=== PATIENT | female | born 1950 | race Caucasian/White ===

== ENCOUNTER 2023-06-24 10:27 | Outpatient (CLI) | payer MEDICARE, OTHER, SELFPAY ==
--- NOTE | 2023-06-24 10:07 | DI.RAD_ITS ---
Exam(s) XR STANDING ALIGNMENT EXAM: XR STANDING ALIGNMENT CLINICAL HISTORY: R TKA. TECHNIQUE: 2D digital imaging was performed. COMPARISON: No exams were available for comparison FINDINGS: 3 views There is a left knee prosthesis. There is moderate severe narrowing of the lateral compartment of th e right knee with element of valgus deformity. Medial compartment of the right knee exhibits normal height. Both hips appear unremarkable as do the ankles. No osseous lesions. Bone density normal. IMPRESSION: Significant narrowing of the lateral compartment of the right knee with valgus deformity. Left knee prosthesis. DATA REPOSITORY: RADIATION DOSE DELIVERED:
--- NOTE | 2023-06-24 10:08 | DI.RAD_ITS ---
Exam(s) XR KNEE RT 2V AP,LAT EXAM: XR KNEE RT 2V AP,LAT CLINICAL HISTORY: R TKA. TECHNIQUE: 2D digital imaging was performed. COMPARISON: CR XR STANDING ALIGNMENT from 06/24/2023 FINDINGS: Two views. No evidence of fracture nor joint effusion. However, there are significant degenerative changes, mor e so in the lateral than medial compartments. There is moderate-advanced narrowing of the lateral co mpartment again noted and marginal osteophytes off the lateral compartment. Also advanced degenerati ve changes in the patellofemoral compartment noted. Lesser degenerative changes with relative preser vation of height of the medial compartment. Sesamoid bones are noted in the distal half of the long lar ligament. IMPRESSION: Degenerative changes as described above, most evident in the lateral and patellofemoral compartments. DATA REPOSITORY: RADIATION DOSE DELIVERED:
== END 2023-06-24 10:28 | disposition home or self-care (01) ==
LOC: DIORS 10:27
PROVIDERS: PCP Physician Assistant; Referring Provider Physician Assistant; Visit Provider Student in an Organized Health Care Education/Training Program
DX: M17.11 Unilateral primary osteoarthritis, right knee; Z96.652 Presence of left artificial knee joint
CPT/HCPCS: 99203; 73560; 77073

== ENCOUNTER 2023-12-26 04:43 | Outpatient (CLI) | payer MEDICARE, OTHER, SELFPAY ==
[2023-12-26 15:15] LABS: HCT 42.9 % (36.0-46.0); HGB 14.3 g/dL (11.2-15.7); MCH 32.1 pg (27.0-33.0); MCHC 33.3 % (32.0-36.0); MCV 96 fL (80-95); MPV 9.1 fL (8.0-11.0); Platelet Count 320 10^3/uL (130-400); RBC 4.46 10^6/uL (3.93-5.22); RDW 13.6 % (11.7-14.6); RDW-SD 48.6 fL; WBC 8.65 10^3/uL (4.4-10.8)
[2023-12-26 16:29] LABS: Anion Gap 9.8 mmol/L (3-11); BUN 20 mg/dL (7-18); CO2 26.2 mmol/L (21.0-32.0); CREATININE 0.8 mg/dL (0.55-1.02); Calcium 9.4 mg/dL (8.5-10.1); Chloride 108 mmol/L (98-107); Estimated GFR 78.72 (mL/min/1.73m2); Glucose 108 mg/dL (74-106); Potassium 4.1 mmol/L (3.5-5.1); Sodium 144 mmol/L (136-145)
== END 2023-12-26 04:44 | disposition home or self-care (01) ==
LOC: LBO 04:44
PROVIDERS: PCP Physician Assistant; Visit Provider Student in an Organized Health Care Education/Training Program
DX: M25.561 Pain in right knee (principal); M17.11 Unilateral primary osteoarthritis, right knee; Z01.818 Encounter for other preprocedural examination; Z01.812 Encounter for preprocedural laboratory examination
CPT/HCPCS: 36415; 80048; 85027

== ENCOUNTER 2024-01-04 08:49 | Observation (INO) | payer MEDICARE, OTHER, SELFPAY ==
[2024-01-04] VITALS (9 sets, daily range): BP systolic 116–144; BP diastolic 55–69; PULSE 64–77; RESP 16–24; TEMP 36–36.6; O2SAT 95–99; BMI 34.1
[2024-01-04] MEDS: Gabapentin 300 MG CAP PO (09:14)
[2024-01-04] MEDS: Celecoxib 200 MG CAP 400 MG PO (09:14)
[2024-01-04] MEDS: Acetaminophen 500 MG TAB 1000 MG PO (09:15)
--- NOTE | 2024-01-04 09:38 | W.ANESPRE ---
General Info Date of Service Date Performed: 01/04/24 Height: 5 ft 2 in Weight: 84.6 kg Body Mass Index (BMI): 34.1 Surgical Procedure: Operation Date: 01/04/24 11:40 Proposed Procedure Side Surgeon p Knee Total Arthroplasty w/OrthAlign, Cementless CR Right Francois Nicole MD Meds Allergies and Home Medications Allergies Allergy/AdvReac Type Severity Reaction Status Date / Time mushroom Allergy Other (See Verified 01/04/24 09:11 Comment) morphine AdvReac bradycardia Verified 01/04/24 09:11 Home Medication Medication Instructions Recorded lorazepam 0.5 mg tablet 0.5 mg PO DAILY PRN 04/06/23 norethindrone acetate 1 mg-ethinyl 1 tab PO DAILY 04/06/23 estradiol 5 mcg tablet (Jinteli) pantoprazole 40 mg tablet,delayed 40 mg PO DAILY 04/06/23 release ropinirole 1 mg tablet 1 mg PO DAILY 04/06/23 sertraline 100 mg tablet 100 mg PO DAILY 04/06/23 aspirin 81 mg tablet,delayed 81 mg PO DAILY 12/26/23 release multivitamin 1 tab PO DAILY 12/26/23 Current Visit Medications: Current Medications Generic Name Dose Route Start Last Admin Trade Name Freq PRN Reason Stop Dose Admin Acetaminophen 1,000 mg 01/04/24 06:00 01/04/24 09:15 Acetaminophen 500 Mg Tab PO 01/04/24 23:59 1,000 mg PREOP ALEX Administration Celecoxib 400 mg 01/04/24 06:00 01/04/24 09:14 Celecoxib 200 Mg Cap PO 01/04/24 23:59 400 mg PREOP ALEX Administration Gabapentin 300 mg 01/04/24 06:00 01/04/24 09:14 Gabapentin 300 Mg Cap PO 01/04/24 23:59 300 mg PREOP ALEX Administration Ringer's Solution 1,000 mls @ 80 mls/hr 01/04/24 06:00 IV 01/04/24 23:59 INFUSION ALEX Cefazolin Sodium/Dextrose 2 gm in 50 mls @ 100 mls/hr 01/04/24 06:00 Ancef Duplex IVPB 01/04/24 23:59 PREOP ALEX Tranexamic Acid/Sodium Chloride 1,000 mg in 100 mls @ 600 mls/hr 01/04/24 06:00 IVPB 01/04/24 23:59 PREOP ALEX IV Miscellaneous Supplies 1 each 01/04/24 06:00 Iv Access IV 01/04/24 23:59 DIRECTED ALEX Sodium Chloride 0 ml 01/04/24 06:00 Normal Saline Flush 10 Ml Syr IV 01/04/24 23:59 PRN PRN Sodium Chloride 0 ml 01/04/24 06:00 Normal Saline 10 Ml Vial IJ 01/04/24 23:59 DIRECTED PRN Sterile Water 0 ml 01/04/24 06:00 Water,Injection,Sterile 10 Ml Vial IJ 01/04/24 23:59 DIRECTED PRN PFSH Active Problems Active Problems: Problem Status Onset Code Arthritis of right knee M17.11 Scleroderma M34.9 Raynaud's disease I73.00 Periodic limb movement disorder G47.61 Mixed anxiety and depressive disorder F41.8 Actinic keratosis L57.0 Surgical History Surgical History History of colonoscopy History of appendectomy Tobacco Smoking/Tobacco Use Status: Never Alcohol Alcohol Intake: never Substance Use Substance use: Never Substance use type: does not use Vital Signs and Lab Results Vital Signs Most Recent Vital Signs in EMR: Most Recent Vital Signs Temp Pulse Resp BP Pulse Ox 36 C L 77 16 144/69 H 99 01/04/24 08:58 01/04/24 08:58 01/04/24 08:58 01/04/24 08:58 01/04/24 08:58 Lab Results Blood Type / Crossmatch: No Data to Display Complete Blood Count: White Blood Count 8.65 10^3/uL (4.4-10.8) 12/26/23 15:10 Red Blood Count 4.46 10^6/uL (3.93-5.22) 12/26/23 15:10 Hemoglobin 14.3 g/dL (11.2-15.7) 12/26/23 15:10 Hematocrit 42.9 % (36.0-46.0) 12/26/23 15:10 Platelet Count 320 10^3/uL (130-400) 12/26/23 15:10 Complete Metabolic Panel: Sodium 144 mmol/L (136-145) 12/26/23 15:10 Potassium 4.1 mmol/L (3.5-5.1) 12/26/23 15:10 Chloride 108 mmol/L (98-107) H 12/26/23 15:10 Carbon Dioxide 26.2 mmol/L (21.0-32.0) 12/26/23 15:10 BUN 20 mg/dL (7-18) H 12/26/23 15:10 Creatinine 0.8 mg/dL (0.55-1.02) 12/26/23 15:10 Est GFR (CKD-EPI 2020) 78.72 (mL/min/1.73m2) 12/26/23 15:10 Calcium 9.4 mg/dL (8.5-10.1) 12/26/23 15:10 Glucose 108 mg/dL (74-106) H 12/26/23 15:10 Liver Function Panel: No Data to Display Coagulation Panel: No Data to Display Cardiac Panel: No Data to Display Arterial Blood Gas: No Data to Display Venous Blood Gas: No Data to Display Pancreas Panel: No Data to Display Thyroid Panel: No Data to Display Infectious Disease: No Data to Display Blood Cultures: No Data to Display Toxicology Panel: No Data to Display Anesthesia Assessment and Plan Anesthesia History Personal History: No History of Anesthesia Complications Family History: No Family History of Anesthesia Complications Exercise Tolerance Exercise Tolerance: Metabolic Equivalents>4 Pertinent Negatives Pertinent Negatives: No Symptoms of GERD Cardiac & Pulmonary Exam Cardiac Exam: Normal S1/S2 Heart Sounds Pulmonary Exam: Clear Bilateral Breath Sounds Implantable Cardiac Device Does patient have a Pacemaker or an ICD?: No Airway Exam Known Difficult Airway: No Mallampati Class: 2 Mouth Opening: Normal (> 3cm) Thyromental Distance: Greater than 3 cm Neck Range of Motion: Full ROM Neck Circumference: Normal Teeth Condition: Normal Dentition ASA Classification ASA Score: ASA 2 Emergency Case?: No NPO Status NPO Status: NPO Clears >2 hours, Solids >8 hours Anesthesia Plan Resuscitation Status: Full Code Anesthesia Technique: Spinal Anesthesia Airway Planned: Natural Airway Pain Management: Surgeon and patient request nerve block Monitors Used: Standard Monitors
--- NOTE | 2024-01-04 09:39 | PDOC.DSDIS_ITS ---
Date of service: 01/04/24 Time of Service: 09:39 Discharge Plan Disposition Patient Disposition: Home Condition: Good Discharge Details Reason For Visit: R TKR Admit Date/Time: 01/04/24 08:49 Admit Provider: Francois Nicole Attending Provider: Francois Nicole Primary Care Provider: Natasha Holliday Home Meds and New Rx's Prescriptions: New celecoxib 200 mg capsule 200 mg PO BID Qty: 60 0RF aspirin 81 mg tablet,delayed release (DR/EC) 81 mg PO BID Qty: 60 0RF acetaminophen 500 mg tablet 1,000 mg PO TID Qty: 90 3RF dexamethasone 4 mg tablet 4 mg PO DAILY Qty: 2 0RF gabapentin 300 mg capsule 300 mg PO QHS Qty: 14 0RF oxycodone 5 mg tablet 5 mg PO Q4H MDD 6 tabs PRN (Reason: pain) Qty: 20 0RF Continued multivitamin Tablet 1 tab PO DAILY norethindrone ac-eth estradiol [Jinteli] 1-5 mg-mcg tablet 1 tab PO DAILY lorazepam 0.5 mg tablet 0.5 mg PO DAILY PRN pantoprazole 40 mg tablet,delayed release (DR/EC) 40 mg PO DAILY ropinirole 1 mg tablet 1 mg PO DAILY sertraline 100 mg tablet 100 mg PO DAILY Discontinued aspirin 81 mg tablet,delayed release (DR/EC) 81 mg PO DAILY Discharge Instructions Additional Instructions: Total Knee Discharge Instructions Activity: The most important activity is to walk and to work on gentle motion (both flexion and extension). You should try to take short walks a few times a day. It is important that when resting you work on keeping the knee straight. Avoid putting a pillow behind the knee as this will encourage flexion. Work on range of motion exercises as provided by Physical Therapy. - Start outpatient physical therapy within 2 weeks. - You should wear the CARITO hose on both legs for 2 weeks. You may remove these at night. You may also use any compression sock in place of the CARITO hose. - Utilize [employer] to review exercises, see videos on exercises and obtain basic information pertaining to your surgery and your recovery. Dressing: Remove the Magno wrap by 2 days after your surgery and put on the CARITO stocking given to you from the hospital. Keep the surgical dressing (underneath the MAGNO wrap) in place for at least one week. After the first week it may be r emoved and replaced with light gauze and tape or nothing. The wound and dressing may get wet after 3 days but avoid soaking the dressing or otherwise it will need to be changed. Many people prefer covering the dressing with cling wrap (saran wrap) to minimize it from getting soaked. If it gets wet, just pat dry. If it starts to peel off then it will need to be changed. Medications: - You should take Tylenol and anti-inflammatory Celebrex as your primary pain control medications. If the Celebrex is too expensive or not covered, please call the office for another alternative (Advil/Ibuprofen or Naproxen/Aleve) - You have been prescribed a stronger pain medication Oxycodone for breakthrough pain, take as needed as prescribed. - You will continue your stomach acid reduction agent Pantoprozole to help reduce stomach acid and reflux. - You have been prescribed Gabapentin to take at night for restlessness and nerve pain. - You will be taking Aspirin 81mg twice a day for DVT prevention unless instructed otherwise. - You have also been prescribed Decadron to take to control post-operative nausea and pain. You will start this tomorrow. - If you have constipation you should take Colace or Miralax (both [id number]). It takes most people 3-4 days to have a bowel movement. Follow-up: 2 weeks If you have any acute concerns or questions, please do not hesitate to contact the office at [phone]. You may contact Dr. Nicole with any questions after hours through the hospital at [phone] or on his cell phone at [phone]. Stand Alone Forms: Anesthesia Discharge Inst., Anes.Nerve Block Instructions, Phill Mercer ([facility]) Referrals: Francois Nicole MD [ [facility] STAFF PHYSICIAN] - 01/19/24 1:00 pm Activity:: Activity as Tolerated Equipment/Supplies:: Walker Diet:: As Tolerated Discharge Orders Discharge Orders: Discharge Order (Routine); Ordered 01/04/24 Ordered By: Francois Nicole DS: Diagnosis Discharge Diagnosis (1) Arthritis of right knee: Status: Acute
[2024-01-04] MEDS: Lactated Ringers 1,000 ML 80 ML IV (09:48)
--- NOTE | 2024-01-04 11:24 | W.ANESNERVE ---
Nerve Block Single Injection Procedure Date and Time Date Performed: 01/04/24 Procedure Start: 10:56 Location Where Procedure Performed Procedure Location: Day Surgery Unit Reason Performed: Postoperative Analgesia Requesting Provider: Francois Nicole Timeout Performed Timeout Performed: Yes Monitoring Used ECG, Blood Pressure, SpO2, ETCO2 and See EMR for corresponding vital signs Sterility Sterility: Hand Hygiene, Surgical Cap, Surgical Mask, Sterile Gloves, Eye Protection and Chlorhexidine Sedation Given During Procedure Sedation Given (Indicate Dose Given): Versed IV Dose:: 3mg IVP Patient Mental Status Patient Mental Status: Sedate with meaningful communication Nerve Block 1st Nerve Block: Laterality: Right Block Type: Adductor Canal Ultrasound Image Saved?: Yes Needle / Catheter Used: 100mm SonoPlex II Local Anesthetic Bolus (Indicate Dose Given): Lidocaine used for local infiltration of skin and Ropivacaine 0.5% Dose:: 0.5%/25cc (125mg) Additives (Indicate Dose Given): Epinephrine to make 1:200,000 (5mcg/ml) Dose:: 125mcg and Decadron Dose:: 10mg PF Ultrasound: Sterile probe cover and gel used Nerve Stimulator: Not Used Paresthesia: None Procedure Tolerated: No Complications and Patient tolerated well Procedure Outcome: Successful Performed By: Babatunde Prather
[2024-01-04] MEDS: ceFAZolin 2 GM/50 ML BAG IVPB (12:30)
[2024-01-04] MEDS: TRANEXAMIC ACID/SOD. CHL. 1,000 MG/100 ML BAG 600 MG IVPB (12:40)
--- NOTE | 2024-01-04 14:00 | W.PM.OP ---
Date of service: 01/04/24 Time of Service: 12:30 Operative Note Operative Note DATE OF PROCEDURE: 01/04/24 PRE-OP DIAGNOSIS: Right Knee Osteoarthritis with Valgus Deformity POST-OP DIAGNOSIS: same PROCEDURE: Right Total Knee Replacement with Intraoperative Navigation SURGEON: Francois Nicole CLAIMS CONFIGURATION ANALYST: Anish Warren ANESTHESIA TYPE: Spinal Refer to Anesthesia Record ESTIMATED BLOOD LOSS: 250 PATHOLOGY: none sent TOURNIQUET TIME: 0 COMPLICATIONS: None Patient was transported to: PACU Patient's condition: stable Implants: 1. Depuy Attune Cementless Cruciate Retaining Femoral Component, Size 7 2. Depuy Attune Cementless Fixed Bearing Tibial Component, Size 6 3. Depuy Attune 7x5 CR/FB Poly 4. Depuy Attune Patellar Component, Size 35 Indications: I have seen Lamar in clinic for symptoms of RIGHT knee arthritis, confirmed with radiographic findings. Lamar has exhausted nonoperative methods and was having significant limitations in daily function and desired better function and less pain. I discussed the technical details of a knee replacement. I explained the risks of the procedure to include, but not limited to, bleeding, infection, pain, stiffness, fracture, damage to nerves and vessels, damage to muscles and tendons, loosening, need for repeat procedure, blood clot and cardiopulmonary demise. Despite these risks, she elected to proceed. Findings: There was significant signs of arthritis throughout the knee involving all 3 compartments with notable maltracking and eburnation of the patella and a valgus deformity. Procedure Description: Lamar was greeted in the preoperative holding area where the correct side was identified and marked. The consent was reviewed with the patient and signed. The history and physical was updated. All questions were answered. Preoperative medications were administered: Acetaminophen 1000mg, Celebrex 400mg, and Gabapentin 300mg. An adductor canal block was then administered by the anesthesia team in the [facility]. Lamar was taken back to the operating room. A spinal anesthestic was then attempted but unscucessful so she was converted to a general anesthetic. The patient was placed into the supine position on the operating room table. A nonsterile tourniquet was placed high onto the leg. Posts were placed for positioning during the procedure. All bony prominences were well padded. Prophylactic antibiotics in the form of Cefazolin were administered. 1g of Tranxemic Acid was given intravenously within 30 minutes of incision. The right leg was then prepped with Chloraprep and draped in a standard fashion with impervious stockinette. A second prep with Chloraprep was performed prior to application of Iodine impregnated skin protection. A timeout to confirm correct identity, side and site, procedure, allergies, anesthesia, and medical concerns was performed. With the knee in some flexion, a midline incision was made overlying the knee. Full thickness skin flaps were raised once the extensor mechanism was encountered. These were raised medially and laterally. Any bleeding was controlled with electrocautery. Once the extensor mechanism was fully exposed, a medial parapatellar arthrotomy was performed in a flexed position. All bleeding from the arthrotomy and the geniculate arteries was coagulated. A medial subperiosteal peel was performed with electrocautery to the midcoronal plane. The fat pad was removed while keeping the patellar tendon protected. The anterior distal femur synovium was removed for later visualization. The ACL and PCL were resected and the anterior horn of the lateral meniscus was transected. The knee was then flexed with the patella everted. Large osteophytes from the tibia were removed. Large osteophytes from the femur were removed. There was significant lateral tracking of the patella with saucerization of the patella. A single starting pin was then placed 1cm anterior to the PCL insertion and the notch in the direction of the femoral head. The OrthoAlign device was applied over the pin. It was oriented to be in line with the epicondylar axis and the trochlear groove. It was then pinned into place. The navigation computer was then turned on and calibrated. The distal femur cut was set at 0 degrees varu/valgus and 3.5 degrees flexion. The distal femur cutting guide then was positioned for a 9mm cut. The distal femur was cut with an oscillating saw while protecting the soft tissues. The tibia was then addressed. The OrthoAlign device was placed over the tibial tubercle and medial tibia and secured into position. Once again, OrthoAlign was calibrated and then set for a 1 degree varus cut and 5 degrees of posterior slope. With this locked into position, the cut thickness stylus was used to assess cut thickness. The lateral side, most involved side, was set for a 4mm cut. This was then held in position and pinned into place with 2 additional pins and a cross pin for stability. The medial and lateral collateral ligaments were protected and the cut was performed. With this completed, it was assessed and noted to be of appropriate dimensions. The guide and OrthoAlign was removed. A spacer block was inserted and the knee was brought into extension to ensure enough space was present. . The Orthoalign gap balancing device was then placed in extension. This was used to ensure that the ligaments were properly balanced with up to 2 to 3 mm laxity laterally compared medially. The extension gap was measured as 17mm. The knee was then brought into 90 degrees of flexion and the ligament facing baster jumpbasting was once again placed. Under the same amount of force the flexion gap was measured. The Attune specific jig was placed and the flexion gap was made to match the extension gap, 6mm cut. The femur was then sized as a size 7. The 4-in-1 cutting guide was the placed. An melissa wing was used to confirm appropriate position of the anterior cut to avoid notching. This cutting guide was ensured to be flush on the cut surface and then pinned into place with headed pins. While protecting the soft tissues, quad tendon, and collateral ligaments, the anterior and posterior cuts were performed with a saw. The central two pins were removed and the posterior and anterior chamfers were cut next. The notch-cutting guide was placed. This was pinned to lateralize the femoral component as much as possible while keeping it flush on the cut surface. This was then pinned into position. A saw was used to make the notch cut. A rasp smoothed the cut surfaces. The medial and lateral menisci were removed. A trial femoral component was then inserted, impacted down to the cut surfaces, and the lug holes were drilled. A provisional trial tibial component was placed and the knee was brought through range of motion. There was noted to be excellent extension and flexion. There was no significant instability. The patella was tracking without thumbs. A size 5mm polyethylene component provided the best range of motion and stability with less than 2mm gapping with medial and lateral stress and full extension without significant hyperextension. The tibial cut surface was fully exposed. The tibia was then sized as a 6. The tibia had been previously marked during trialing to correspond to the center of the tibial component to help with rotation. The trial was aligned to this anish, approximately rotated to the medial 1/3rd of the tibial tubercle. The trial was pinned into place. The tibia was prepared with a reamer and a keel punch and lug holes. The knee was then brought into extension and the patella was measured as 20mm. Using the patellar clamp and cut guide, this was resected to a flat surface with at least 13mm of thickness remaining. The size 35 patella fit the best. This was oriented and then clamped into position. The lugs were drilled. The trial components were removed. The final components were opened on the back table. The periosteal and capsular tissues, especially posteriorly, around the knee were then systematically injected with a periarticular cocktail consisting of 246mg of Ropivacaine, 0.5mg of Epinephrine, 0.08mg of Clonidine, and 30mg of Ketorolac, diluted to 100cc. On the back table, with the implants opened, the cement was mixed. One batch of high viscosity cement was prepared with vacuum assistance. After the cement was ready a small amount was placed on the cut surface of the patella and the patellar button was clamped into position and held. While the cement was hardening, the cementless knee components were placed. Starting with the tibial component, the tibia was subluxed anteriorly and the lug holes of the component were lined up. The tibia was then impacted with an impactor and mallet until the tibial component was in contact with the tibia. Then, the femoral component was inserted. The lug holes were aligned and the component was impacted into position. The final polyethylene component was inserted. The knee was irrigated with Surgiphor Betadine solution. This was allowed to sit in the knee for 3 minutes and then it was thoroughly irrigated out with saline. After the cement had finally cured, approximately 15min, the clamp was removed from the patella and the knee was taken through range of motion. The patella was tracking with a no-thumbs technique. The capsule was then reapproximated with a No. 1 Vicryl at multiple locations. The capsule was finally closed with a No. 2 Stratafix, barbed suture. Deep tissues were then reapproximated with 0 Vicryl and 2-0 Vicryl. The skin was closed with a running 3-0 Monocryl in a subcuticular fashion. This was reinforced with skin glue. A Mepilex silver dressing was applied along with a [id number] IMAN wrap. A CryoCuff was applied. Lamar was transferred to the hospital stretcher without difficulty an suffering no apparent complication. Lamar has a good prognosis. Physical therapy will start today and without restrictions, weight-bearing as tolerated. Aspirin 81mg BID will be used for DVT prophylaxis.
--- NOTE | 2024-01-04 15:25 | PT.INIE ---
PT Notes Visit Reasons: R TKR Physical Therapy Day Surgery Initial Evaluation Date: 01/04/2024 Referring Doctor: CLAUDETTE Henao PT Orders: PT CONSULT: S/P ortho Surgery Precautions: WBAT on right LE with AD. Patient Profile/Admitting Diagnosis: Lamar is a 73-year-old female with degenerative joint disease of the right knee and status post right total knee arthroplasty on postoperative day 0. PMHX: Surgical History History of colonoscopy History of appendectomy Social History/Home Situation: Lives alone in a mobile home with one-step to enter and with no rails. Modified independent with all aspects of ADLs prior to surgery. Still drives. Equipment Owned/DME: [facility] (refitted by PT during the session for optimal use) Subjective: Per nurse correlating patient refused offer of pain pill prior to physical therapy. Patient complained of 5/10 pain report in the right knee and the outer part of R thigh. Reported dizziness after ambulation activity and stair negotiation that resolved with seated rest which Nurse Chaudhari and Nurse anesthesiologist were aware about. Objective: General Observation: Magno wraps to right LE. Cryocuff to right knee. TDS to left leg and foot. Sister present throughout evaluation. Mental Status: A and O x4 Pain: As above ROM: Right Lower Extremity: Hip flexion WFL. Hip abduction WFL. Knee flexion 20 degrees to 90 degrees. Knee extension -20 degrees. Ankle dorsiflexion WFL. Ankle plantarflexion WFL. Left Lower Extremity: Hip flexion WFL. Hip abduction WFL. Knee flexion WFL. Ankle dorsiflexion WFL. Ankle plantarflexion WFL. Strength: Right Lower Extremity: Hip flexors 4-/5. Hip abductors 4-/5. Knee flexors 3-/5. Knee extensors 3-/5. Ankle dorsiflexors 4-/5. Ankle plantarflexors 4-/5. Left Lower Extremity:Hip flexors 5/5. Hip abductors 5/5. Knee flexors 5/5. Knee extensors 5/5. Ankle dorsiflexors 5/5. Ankle plantarflexors 5/5. Sensation: Intact as to pain and light pressure in bilateral lower extremities Bed Mobility/Transfers: Minimal cueing provided for use of B hands as needed for support, movement sequence, AD management, and posture to reduce fall risk and minimize pain report Supine to sit standby assist Sit to stand contact-guard assist with FWW Stand to sit standby assist with FWW Bed to chair standby assist with FWW Gait: Facilitated safe and correct performance of level surface ambulation covering a distance of 150 feet with step-to heel-toe gait pattern using front-wheeled walker requiring standby assist and minimal verbal cueing for limb movement sequence, AD management, and posture to reduce fall risk and minimize pain report. Pre-existing thoracic kyphosis noted. Stairs: Guided patient with safe and correct negotiation of 6 x 4-inch steps and 4 x 6-inch steps while holding onto 1 rail and using a single-point cane on the other side with minimal verbal cueing needed for limb movement sequence, AD management, and posture to reduce fall risk and minimize pain report. Balance: Static Sitting: Normal Dynamic Sitting: Normal Static Standing: Fair Dynamic Standing: Fair Special Tests: Mobility Limitations Standardized Measure [facility]-P[facility] 6 clicks Basic Mobility Inpatient Short Form: Raw Score: 22 CMS Score: 21% deficit Informed Consent/Education: Patient instructed in purpose of PT consult. Packet containing TKA exercise protocol has been given to patient. Education and training on initial set of exercises that can be done at home have been completed with patient. Trained patient with correct performance of exercises below to maximize motor control, joint flexibility, soft tissue extensibility of the R knee musculature: Access Code: [email or web address] URL: [email or web address] Date: 01/04/2024 Prepared by: Katia Cuellar Exercises - Supine Quad Set - 1 x daily - 7 x weekly - 1 sets - 10 reps - 5 hold - Supine Heel Slide - 1 x daily - 7 x weekly - 1 sets - 10 reps - 5 hold - Supine Ankle Pumps - 1 x daily - 7 x weekly - 1 sets - 10 reps - 5 hold - Small Range Straight Leg Raise - 1 x daily - 7 x weekly - 1 sets - 10 reps - 5 hold - Seated March - 1 x daily - 7 x weekly - 1 sets - 10 reps - 5 hold Assessment: Patient requires the use of a front wheeled walker for all mobility ADL performance to maximize independence and reduce fall risk. Patient presents with clinical signs and symptoms consistent with current/admitting diagnoses that have resulted to mobility limitations, gait instability, generalized weakness, and impairment of motor control as demonstrated by the following impairment level findings: 1. Decreased strength to R knee major muscle groups 2. Impaired standing balance 3. Limitation of joint range of motion in R knee Impairments are contributing to the following functional limitations: 1. Inability to safely ambulate without assistive device 2. Increase completion time for mobility ADL performance 3. Increased fall risk Patient is assessed as a [id number] moderate complexity based on the following: History: 73-year-old female with impairment level findings, functional limitations, and past medical history as indicated above Examination: Demonstrable impairment in strength, balance, and mobility level with underlying impairments and functional limitations as documented above Presentation: Evolving Decision Makin moderate complexity Goals: N/A. PT evaluation and 1-2 treatment sessions only for functional mobility training using recommended AD and for HEP instruction. Plan of Care/Treatment Plan: N/A. PT evaluation and 1-2 treatment session only for functional mobility training using recommended AD and for HEP instruction. DISCHARGE RECOMMENDATIONS: Home when medically cleared by orthopedic surgeon. Recommend outpatient PT services in order to optimize functional mobility outcomes and facilitate return to independent community ambulation without an assistive device. TREATMENT CODE/TIME: 22573 x 25 minutes, 9753 0 x 27 minutes for 2 units (15:25-16:17). Thank you for the opportunity to participate in the care of this patient. Please sign an return this page within 30 days if you agree with the above POC. Thank you! Physician Signature Date [facility] Thank you for the opportunity to participate in the care of this patient. Katia Cuellar PT, DPT, CLT [facility] [place], [place]
--- NOTE | 2024-01-04 15:54 | W.ANESPOSTOP ---
Postoperative Evaluation Date, Time and Location Date Performed: 01/04/24 Time Performed: 15:54 Patient Location: Day Surgery Unit Vital Signs Most Recent Imported Vital Signs: Most Recent Vital Signs Temp Pulse Resp BP Pulse Ox 36 C L 64 18 142/63 H 97 01/04/24 15:34 01/04/24 15:34 01/04/24 15:34 01/04/24 15:34 01/04/24 15:34 Pain Score Most Recent Pain Score: Most Recent Pain Score Pain Level 4 01/04/24 15:34 Assessment Mental Status: Awake (Alert & Oriented to Patient Baseline) Airway and Respiratory Function: Patent airway with normal (patient baseline) respiratory exam Cardiovascular Function: Hemodynamically Stable Hydration Status: Adequately Hydrated Nausea & Vomiting: No Nausea or Vomiting Pain: Pain is tolerable per patient Peripheral Nerve Block: Regional nerve block not resolved at time of post operative discharge
[2024-01-04] MEDS: oxyCODONE 5 MG TAB PO (16:05)
== END 2024-01-04 16:58 | disposition home or self-care (01) ==
PROVIDERS: Admitting Provider Student in an Organized Health Care Education/Training Program; PCP Physician Assistant; Visit Provider Student in an Organized Health Care Education/Training Program
PROC: (CPT 27447; principal; 2024-01-04 11:30)
DX: M17.11 Unilateral primary osteoarthritis, right knee (principal); I73.00 Raynaud's syndrome without gangrene; M34.9 Systemic sclerosis, unspecified; G47.61 Periodic limb movement disorder
CPT/HCPCS: 20985; 27447; C1776; 76942; 97162; 97530; J0171; J0690; J1100; J2001; J2250; J2401; J2405; J2704; J2795

== ENCOUNTER 2024-01-19 15:48 | Outpatient (CLI) | payer MEDICARE, OTHER, SELFPAY ==
--- NOTE | 2024-01-19 13:33 | DI.RAD_ITS ---
Exam(s) XR KNEE RT 1V EXAM: XR KNEE RT 1V CLINICAL HISTORY: 1st post op R TKA. TECHNIQUE: 2D digital imaging was performed. COMPARISON: CR XR KNEE RT 2V AP,LAT from 06/24/2023 FINDINGS: Single lateral view Satisfactory position alignment of the components of the recently placed right knee prosthesis. No f racture or loosening evident. No evidence of osteomyelitis. IMPRESSION: Stable satisfactory appearance DATA REPOSITORY: RADIATION DOSE DELIVERED:
--- NOTE | 2024-01-19 13:34 | DI.RAD_ITS ---
Exam(s) XR STANDING ALIGNMENT EXAM: XR STANDING ALIGNMENT CLINICAL HISTORY: 1ST POST OP R TKA. TECHNIQUE: 2D digital imaging was performed. COMPARISON: CR XR STANDING ALIGNMENT from 06/24/2023 FINDINGS: 3 views There has been interval placement of a right knee prosthesis. There are now bilateral knee prosthese s which appear satisfactory. No fractures nor obvious loosening. Both hips appear unremarkable as do the ankles. Bone density normal. No osseous lesions. IMPRESSION: Bilateral hip prostheses which appear satisfactory. Hips unremarkable. DATA REPOSITORY: RADIATION DOSE DELIVERED:
== END 2024-01-19 15:49 | disposition home or self-care (01) ==
LOC: DIORS 15:48
PROVIDERS: PCP Physician Assistant; Referring Provider Physician Assistant; Visit Provider Student in an Organized Health Care Education/Training Program
DX: Z96.651 Presence of right artificial knee joint (principal); Z47.1 Aftercare following joint replacement surgery
CPT/HCPCS: 73560; 77073

== ENCOUNTER → 2024-02-20 08:52 | Outpatient (BNVA) | payer MEDICARE, OTHER, SELFPAY | PROVIDERS: PCP Physician Assistant; Referring Provider Physician Assistant; Visit Provider Student in an Organized Health Care Education/Training Program ==

== ENCOUNTER → 2024-03-05 09:08 | Outpatient (BNVA) | payer MEDICARE, OTHER, SELFPAY | PROVIDERS: PCP Physician Assistant; Referring Provider Physician Assistant; Visit Provider Student in an Organized Health Care Education/Training Program | DX: Z47.1 Aftercare following joint replacement surgery (principal); Z96.651 Presence of right artificial knee joint ==

== ENCOUNTER → 2024-04-02 09:44 | Outpatient (BNVA) | payer MEDICARE, OTHER, SELFPAY | PROVIDERS: PCP Physician Assistant; Visit Provider Student in an Organized Health Care Education/Training Program | DX: Z47.1 Aftercare following joint replacement surgery (principal); Z96.651 Presence of right artificial knee joint ==

== ENCOUNTER → 2024-06-04 09:36 | Outpatient (BNVA) | payer MEDICARE, OTHER, SELFPAY | PROVIDERS: PCP Physician Assistant; Referring Provider Physician Assistant; Visit Provider Student in an Organized Health Care Education/Training Program | DX: Z47.1 Aftercare following joint replacement surgery (principal); Z96.651 Presence of right artificial knee joint | CPT/HCPCS: 99213 ==

== ENCOUNTER 2025-01-03 10:52 | Outpatient (CLI) | payer MEDICARE, OTHER, SELFPAY ==
--- NOTE | 2025-01-03 10:45 | DI.RAD_ITS ---
Exam(s) XR KNEE RT 2V AP,LAT EXAM: XR KNEE RT 2V AP,LAT INDICATION: ANNUAL F/U R TKA. COMPARISON: CR XR KNEE RT 1V from 01/19/2024 TECHNIQUE: 2D digital imaging was performed. Two views. FINDINGS: Stable alignment of total knee prosthesis. No abnormal surrounding lucencies. DATA REPOSITORY: RADIATION DOSE DELIVERED:
== END 2025-01-03 10:53 | disposition home or self-care (01) ==
LOC: DIORS 10:52
PROVIDERS: PCP Physician Assistant; Referring Provider Physician Assistant; Visit Provider Student in an Organized Health Care Education/Training Program
DX: Z47.1 Aftercare following joint replacement surgery (principal); Z96.651 Presence of right artificial knee joint; M25.661 Stiffness of right knee, not elsewhere classified
CPT/HCPCS: 99213; 73560